=== PATIENT | male | born 1995 | race African-American/Black ===

== ENCOUNTER 2023-08-20 16:27 | Emergency (ER) | payer BC, MEDICAID ==
[~2023-08-20] VITALS: Ht 180.3 cm; Wt 62.0 kg
[2023-08-20] MEDS: normal saline 1000ML IV soln IVB ONE (17:21)
[2023-08-20] MEDS: acetaminophen 325mg tablet PO ONE (18:32)
[2023-08-20 18:33] VITALS: BP 109/80; PULSE 73; RESP 18; TEMP 98.4; O2SAT 98
[2023-08-20 18:44] LABS: BASOPHILS # (AUTO) 0.2 X10'3 (0-0.2); EOSINOPHILS # (AUTO) 0.1 X10'3 (0-0.9); EOSINOPHILS % (AUTO) 0.7 % (0-6); HEMATOCRIT 43.8 % (42.0-52.0); HEMOGLOBIN 14.8 g/dl (14.0-17.9); LYMPHOCYTES # (AUTO) 0.4 X10'3 (1.1-4.8); LYMPHOCYTES % (AUTO) 5.3 % (21-51); MEAN CORPUSCULAR HEMOGLOBIN 29.6 PG (27.0-31.0); MEAN CORPUSCULAR HGB CONC 33.8 g/dL (33.0-36.5); MEAN CORPUSCULAR VOLUME 87.8 FL (78-98); MEAN PLATELET VOLUME 8.3 FL (7.4-10.4); MONOCYTES # (AUTO) 0.2 X10'3 (0-0.9); NEUTROPHILS # (AUTO) 7.6 X10'3 (1.8-7.7); PLATELET COUNT 248 X10'3 (140-440); RED BLOOD COUNT 4.99 X10'6 (4.70-6.10); WHITE BLOOD COUNT 8.4 X10'3 (4.5-11.0)
[2023-08-20 18:48] LABS: ALBUMIN 4.3 G/DL (3.4-5.0); ANION GAP 8 (8-16); BLOOD UREA NITROGEN 7 MG/DL (7-18); BUN/CREATININE RATIO 8.1 (10.0-20.0); CALCIUM 8.8 MG/DL (8.5-10.1); CHLORIDE 100 MMOL/L (99-107); CREATININE 0.86 MG/DL (0.60-1.10); GLUCOSE 97 MG/DL (70-104); POTASSIUM 3.7 MMOL/L (3.5-5.1); SODIUM 137 MMOL/L (135-145); TOTAL CARBON DIOXIDE 29.3 MMOL/L (24-32); eCRCL 113 ML/MIN; eGFR > 90 ML/MIN
[2023-08-20] MEDS ORDERED: HYDR-3965 PO (19:10)
[2023-08-20] MEDS: LIDOcaine 5% patch TP STA (19:10)
[2023-08-20] MEDS: TETanus/Pertussis (Acell)/Diphther VAC/PF (Tdap-Adult) 0.5ml syringe IMVAC ONE (19:11)
== END 2023-08-20 19:25 | disposition home or self-care (01) ==
LOC: ER 16:27
DX: S22.088A Other fracture of T11-T12 vertebra, initial encounter for closed fracture (principal); S00.81XA Abrasion of other part of head, initial encounter; G40.909 Epilepsy, unspecified, not intractable, without status epilepticus; M54.9 Dorsalgia, unspecified; M54.2 Cervicalgia; X58.XXXA Exposure to other specified factors, initial encounter; Y93.89 Activity, other specified; Y92.89 Other specified places as the place of occurrence of the external cause; Y99.8 Other external cause status
CPT/HCPCS: 36415; 70450; 72070; 72125; 80048; 85025; 90471; 90715; 96360; 99285; J7030